=== PATIENT | female | born 1930 | race Caucasian/White ===

== ENCOUNTER → 2016-12-24 | Outpatient (CLI) | payer MEDICARE ==
[2016-12-18 09:39] VITALS: BP 168/63
[~2016-12-24] MED LIST: ACET500T68 PO; ALBU2.5V14 NEB; ASCO500C PO; CALC-222 PO; DIGO125T PO; DILT180C29 PO; ENAL20TA PO; FURO40TA4 PO; GUAI118L3 PO; HYDR-2666 PO; HYDR-2762 PO; IBUP100O7 PO; LEVO100T5 PO; LEVO88TA2 PO; LOPE2TAB27 PO; LOSA25TA4 PO; MAGN400O4 PO; MELA5CAP PO; POTA20LI PEG; SENN1TAB7 PO; SULF1TAB23 PO; VERA40TA PO; [UNRECOGNIZED DRUG - OTHER]
[2016-12-24 06:01] LABS: INR 1.6 (0.8-1.1); PROTHROMBIN TIME PATIENT 18.2 SEC (11.7-14.0)
== END | disposition home or self-care (01) ==
LOC: SPEC 05:10
PROVIDERS: ATTEND Internal Medicine
DX: Z51.89 Encounter for other specified aftercare (principal)
CPT/HCPCS: 36415; 85610